=== PATIENT | male | born 1980 | race Hispanic/Latino ===

== ENCOUNTER 2017-09-05 08:41 | Inpatient (IN) | payer BC ==
[~2017-09-05] VITALS: Ht 195.6 cm; Wt 146.5 kg
[2017-09-05] MEDS ORDERED: ACETAMINOPHEN 1000 MG/100 ML IV STA (09:06)
[2017-09-05] MEDS ORDERED: SODIUM CHLORIDE 0.9% 1000ML 1,000 ML IV STA ×2 (09:08→13:55)
[2017-09-05] MEDS ORDERED: MORPHINE SULFATE 2 MG/ML SYR IV STA (09:17)
[2017-09-05] MEDS ORDERED: ONDANSETRON HCL INJ 2 MG/ML VIAL IV STA (09:17)
[2017-09-05 09:43] LABS: BASOPHILS % 0.2 % (0.0-1.0); HEMOGLOBIN 13.3 g/dL (14.0-18.0); MEAN CORPUSCULAR HEMOGLOBIN 29.2 pg (28-32); MEAN CORPUSCULAR VOLUME 83.3 fL (81-99); MONOCYTES # (AUTO) 1.8 (0.2-0.8); NEUTROPHILS # (AUTO) 17.3 (2.1-6.9); PLATELET COUNT 307 x10e3/uL (140-360); RED BLOOD COUNT 4.56 x10e6/uL (4.3-5.7); RED CELL DISTRIBUTION WIDTH 12.5 % (11.7-14.4)
[2017-09-05 10:02] LABS: ALBUMIN 3.6 g/dL (3.5-5.0); ALBUMIN/GLOBULIN RATIO 0.9 (0.8-2.0); CALCIUM 9.1 mg/dL (8.4-10.2); CREATININE, SERUM 1.35 mg/dL (0.72-1.25)
[2017-09-05 11:19] LABS: BILIRUBIN,URINE NEGATIVE (NEGATIVE); KETONES,URINE NEGATIVE (NEGATIVE); LEUKOCYTE ESTERASE ,URINE NEGATIVE (NEGATIVE); NITRITE,URINE NEGATIVE (NEGATIVE); URINE UROBILINOGEN 0.2 mg/dL (0.2 - 1)
[2017-09-05 11:20] LABS: CLARITY,URINE CLEAR (CLEAR); COLOR,URINE YELLOW (YELLOW); PROTEIN,URINE DIPSTICK 2+ (NEGATIVE)
[2017-09-05 11:33] LABS: EPITHELIAL CELLS,URINE RARE /LPF; WBC,URINE (MAN) 0-5 /HPF (0-5)
--- NOTE | 2017-09-05 11:35 | Diagnostic Imaging Report ---
PROCEDURE:TESTICULAR ULTRASOUND COMPARISON:None. INDICATIONS:LT TESTICULAR PAIN TECHNIQUE: Loya-scale and color doppler images of the testicles and scrotal contents were obtained. Duplex imaging with spectral waveform analysis was performed of the testicular arteries and veins. FINDINGS: RIGHT SCROTUM: Testicle: 3.5 x 2.7 x 2.9 cm. Epididymal head: 2.1 x 1.6 x 0.9 cm. Hydrocele: None. Varicocele: None. LEFT SCROTUM: Testicle: 3.8 x 2.5 x 2.9 cm. Epididymal head: 1.3 x 2.1 x 2.8 cm. Hydrocele: None. Varicocele: None. Increased vascularity is noted in the bilateral epididymides and testicles. Scrotal edema is present bilaterally. Normal arterial and venous waveforms. Low suspicion of torsion. CONCLUSION: Bilateral epididymoorchitis. No evidence of abscess formation. Dictated by: Neo Hinojosa M.D. on 09/05/2017 at 11:36 Electronically approved by: Neo Hinojosa M.D. on 09/05/2017 at 11:36
--- NOTE | 2017-09-05 11:36 | Diagnostic Imaging Report ---
PROCEDURE:TESTICULAR DOPPLER ULTRASOUND COMPARISON:None. INDICATIONS:LT TESTICULAR PAIN TECHNIQUE: Loya-scale and color doppler images of the testicles and scrotal contents were obtained. Duplex imaging with spectral waveform analysis was performed of the testicular arteries and veins. FINDINGS: See below. CONCLUSION: Please see the dictation of the testicular ultrasound for full clinical details. Dictated by: Neo Hinojosa M.D. on 09/05/2017 at 11:37 Electronically approved by: Neo Hinojosa M.D. on 09/05/2017 at 11:37
--- NOTE | 2017-09-05 13:03 | Diagnostic Imaging Report ---
PROCEDURE:CT PELVIS WITH CONTRAST COMPARISON:[facility], US, US TESTICULAR, 09/05/2017, 10:08. INDICATIONS:swelling in private Left testicle TECHNIQUE:CT of the pelvis was performed after the uneventful intravenous administration of 100 cc of nonionic contrast. A general protocol was utilized. DLP: 728.16 mGY-cm FINDINGS: BOWEL: Visualized portions of the small bowel and large bowel are normal in diameter with normal wall thickness. The appendix is not visible. There is no evidence of hernia. PELVIC NODES:No enlarged mesenteric lymph nodes. A right pelvic side wall lymph node measures 2.3 x 1.1 cm. Inguinal lymph nodes are increased in number and size, left more severe than the right. The largest left lymph node measures 1.6 x 3.0 cm. There is soft tissue inflammation in the left inguinal region. PELVIC ORGANS:The bladder is well-distended and is normal. The distal ureters are collapsed. Prostate gland and seminal vesicles appear normal. There are bilateral hydroceles. There are tiny epididymal calcifications on the right and the left. No enhancing fluid collection. No evidence of scrotal air. No free fluid or fluid collection in the pelvis. BONES: Mild degenerative changes of L5-S1 and milder changes of the right hip. There are no lytic or blastic lesions. CONCLUSION: 1. Bilateral inguinal lymphadenopathy, left more severe than the right with a solitary prominent right pelvic sidewall lymph node. These could be the result of an infectious/inflammatory process. Recommend follow-up CT in 10-12 weeks to assess interval change/resolution. 2. Bilateral hydroceles without evidence of abscess. 3. No intraperitoneal abscess or evidence of bowel obstruction. Dictated by: Grazyna Florian M.D. on 09/05/2017 at 13:03 Electronically approved by: Grazyna Florian M.D. on 09/05/2017 at 13:03
[2017-09-05] MEDS ORDERED: SODIUM CHLORIDE 0.9% 50ML 50 ML ONE (13:23)
[2017-09-05] MEDS ORDERED: IOPAMIDOL 370 MG/ML 200 ML INFUS..BTL INJ ONE (13:23)
[2017-09-05] MEDS ORDERED: SODIUM CHLORIDE 0.9% 1000ML 1,000 ML IV SCH (13:50)
[2017-09-05] MEDS ORDERED: CEFTRIAXONE SOD 250 MG VIAL IM ONE (14:00)
[2017-09-05] MEDS ORDERED: MORPHINE SULFATE 2 MG/ML SYR IV PRN ×3 (14:00→19:30)
[2017-09-05] MEDS ORDERED: VANCOMYCIN 1GM/NS 250 ML 250 ML IV SCH ×2 (14:00→15:00)
[2017-09-05] MEDS ORDERED: ONDANSETRON HCL INJ 2 MG/ML VIAL IV PRN (14:00)
[2017-09-05] MEDS ORDERED: DEXTROSE 50% SYRINGE 50 ML IV PRN (14:00)
--- OUTSIDE RECORDS SUMMARY | 2017-09-05 14:17 | XMS REPORT ---
Author Author [facility] Address Unknown Phone Unavailable Care Team Providers Care Commodity Loan Clerk Name Role Phone SURI GONZALEZ Unavailable Unavailable Problems This patient has no known problems. Allergies, Adverse Reactions, Alerts This patient has no known allergies or adverse reactions. Medications This patient has no known medications. Results Test Description Test Time Test Comments Text Results Atomic Results Result Comments CT PELVIS W [address] [address] Patient Name: JOSEPH NINA MR #: [id number] : 1980 Age/Sex: 36/M Req #: [id number] Adm Physician: Ordered by: SURI GONZALEZ MD Report #: [id number] Location: ER Room/Bed: Procedure: [id number] CT/CT PELVIS W Exam Date: 09/05/17 Exam Time: 1225 REPORT STATUS: Signed PROCEDURE: CT PELVIS WITH CONTRAST COMPARISON: [facility], US, US TESTICULAR, 09/05/2017, 10:08. INDICATIONS: swelling in private Left testicle TECHNIQUE: CT of the pelvis was performed after the uneventful intravenous administration of 100 cc of nonionic contrast. A general protocol was utilized. DLP: 728.16 mGY-cm FINDINGS: BOWEL: Visualized portions of the small bowel and large bowel are normal in diameter with normal wall thickness. The appendix is not visible. There is no evidence of hernia. PELVIC NODES : No enlarged mesenteric lymph nodes. A right pelvic side wall lymph node measures 2.3 x 1.1 cm. Inguinal lymph nodes are increased in number and size , left more severe than the right. The largest left lymph node measures 1.6 x 3.0 cm. There is soft tissue inflammation in the left inguinal region. PELVIC ORGANS: The bladder is well-distended and is normal. The distal ureters are collapsed. Prostate gland and seminal vesicles appear normal. There are bilateral hydroceles. There are tiny epididymal calcifications on the right and the left. No enhancing fluid collection. No evidence of scrotal air. No free fluid or fluid collection in the pelvis. BONES : Mild degenerative changes of L5-S1 and milder changes of the right hip. There are no lytic or blastic lesions. CONCLUSION: 1. Bilateral inguinal lymphadenopathy, left more severe than the right with a solitary prominent right pelvic sidewall lymph node. These could be the result of an infectious/inflammatory process. Recommend follow-up CT in 10-12 weeks to assess interval change/resolution. 2. Bilateral hydroceles without evidence of abscess. 3. No intraperitoneal abscess or evidence of bowel obstruction. Dictated by: Monique Florian M.D. on 09/05/2017 at 13:03 Electronically approved by: Monique Florian M.D. on 09/05/2017 at 13:03 Dictated By: MONIQUE FLORIAN MD 1303 Transcribed By: JORGE on 09/05/17 1303 COPY TO: SURI GONZALEZ MD [place] [address] Patient Name: JOSEPH NINA MR #: [id number] : 1980 Age/Sex: 36/M Req #: [id number] [facility] Physician: Ordered by: SURI GONZALEZ MD Report #: [id number] Location: ER Room/Bed: Procedure: [id number] US/US TESTICULAR Exam Date: Exam Time: REPORT STATUS: Signed PROCEDURE: TESTICULAR ULTRASOUND COMPARISON: None. INDICATIONS: LT TESTICULAR PAIN TECHNIQUE: Loya-scale and color doppler images of the testicles and scrotal contents were obtained. Duplex imaging with spectral waveform analysis was performed of the testicular arteries and veins. FINDINGS: RIGHT SCROTUM: Testicle: 3.5 x 2.7 x 2.9 cm. Epididymal head: 2.1 x 1.6 x 0.9 cm. Hydrocele: None. Varicocele : None. LEFT SCROTUM: Testicle: 3.8 x 2.5 x 2.9 cm. Epididymal head: 1.3 x 2.1 x 2.8 cm. Hydrocele: None. Varicocele: None. Increased vascularity is noted in the bilateral epididymides and testicles. Scrotal edema is present bilaterally. Normal arterial and venous waveforms. Low suspicion of torsion. CONCLUSION: Bilateral epididymoorchitis. No evidence of abscess formation. Dictated by: Katie Fuentes M.D. on 2017 at 11:36 Electronically approved by: Katie Fuentes M.D. on 2017 at 11:36 Dictated By: KATIE FUENTES MD 1136 Transcribed By: JORGE on 09/05/17 1136 COPY TO: SURI GONZALEZ MD TESTICULAR DOPPLER [place] [address] Patient Name: JOSEPH NINA MR #: [id number] : 1980 Age/Sex: 36/M Req #: [id number] Adm Physician: Ordered by: SURI GONZALEZ MD Report #: [id number] Location: Room/Bed: Procedure: [id number] US/US TESTICULAR DOPPLER LTD Exam Date: Exam Time: REPORT STATUS: Signed PROCEDURE: TESTICULAR DOPPLER ULTRASOUND COMPARISON: None. INDICATIONS: LT TESTICULAR PAIN TECHNIQUE: Loya-scale and color doppler images of the testicles and scrotal contents were obtained. Duplex imaging with spectral waveform analysis was performed of the testicular arteries and veins. FINDINGS: See below. CONCLUSION: Please see the dictation of the testicular ultrasound for full clinical details. Dictated by: Katie Fuentes M.D. on 09/05/2017 at 11:37 Electronically approved by: Katie Fuentes M.D. on at 11:37 Dictated By: KATIE FUENTES MD 1137 Transcribed By: JORGE on 09/05/17 8339 COPY TO: SURI GONZALEZ MD
[2017-09-05] MEDS: PIPERACILLIN/TAZO 4.5 GM 100 ML IV SCH ×2 (14:26→22:15)
[2017-09-05] MEDS ORDERED: IOPAMIDOL 300MG/ML 50ML INFUS..BTL IV ONE (15:18)
[2017-09-05] MEDS ORDERED: HYDROGEN PEROXIDE 120 ML BTL ONE (15:38)
[2017-09-05] MEDS: INSULIN REGULAR, HUMAN 100 UNIT/1 ML 3ML VIAL SQ SCH ×2 (16:30→22:45)
[2017-09-05] MEDS ORDERED: SODIUM CHLORIDE 0.9% 1000ML 1,000 ML ONE (17:17)
[2017-09-05 17:35] VITALS: BP 115/58
[2017-09-05] MEDS ORDERED: ONDANSETRON HCL INJ 2 MG/ML VIAL ONE (17:44)
[2017-09-05] MEDS ORDERED: LIDOCAINE HCL 2% LOCAL INJ 5 ML SDV VIAL INJ ONE (17:44)
[2017-09-05] MEDS ORDERED: METOCLOPRAMIDE HCL 10 MG/2ML VIAL ONE (17:44)
[2017-09-05] MEDS ORDERED: DESFLURANE 240 ML BTL INH ONE (17:44)
[2017-09-05] MEDS ORDERED: ACETAMINOPHEN 1000 MG/100 ML IV ONE (17:44)
[2017-09-05] MEDS ORDERED: PROPOFOL IV EMULSION 10 MG/ML 20 ML VIAL ONE (17:44)
[2017-09-05] MEDS: VANCOMYCIN 1GM/NS 250 ML 250 ML IV SCH (17:45)
[2017-09-05] MEDS ORDERED: MIDAZOLAM HCL 2 MG/2 ML VIAL ONE (17:58)
[2017-09-05] MEDS ORDERED: FENTANYL CITRATE/PF 100MCG/2 ML INJ ONE (17:58)
[2017-09-05 18:10] VITALS: BP 115/58
[2017-09-05] MEDS: FAMOTIDINE 20 MG TAB PO SCH (19:18)
[2017-09-05] MEDS: METFORMIN HCL 500 MG TAB PO SCH (19:18)
--- NOTE | 2017-09-05 19:19 | History and Physical ---
PRIMARY CARE PHYSICIAN: The patient has no PCP. CHIEF COMPLAINT: Swelling and erythema of the scrotum. HISTORY OF PRESENT ILLNESS: Mr. Salazar is a 36-year-old gentleman who was recently diagnosed with diabetes in the emergency room 2 weeks ago with elevated blood sugar, started on metformin. Now, he has 2 to 3 days of worsening erythema and swelling of the scrotum with fever and chills. REVIEW OF SYSTEMS: He has had subjective fever and chills. Denies weight loss. Denies sinus congestion or sore throat. Denies chest pain or palpitations. Denies shortness of breath, wheezing or cough. Denies abdominal pain, nausea and vomiting. He denies dysuria but has significant scrotal pain, tenderness and swelling. He denies rash or pruritus, but does have significant erythema of the scrotal skin. He denies bleeding or bruising. Denies headache, vertigo or loss of consciousness. He denies depression, agitation, homicidal or suicidal ideation. PAST MEDICAL HISTORY: Significant for diabetes diagnosed 2 weeks ago for which he is taking metformin 500 mg twice daily. The patient has no history of surgery and is not a smoker. ALLERGIES: NO KNOWN DRUG ALLERGIES. FAMILY HISTORY: Remarkable for diabetes. SOCIAL HISTORY: The patient is . Speaks good Citizen [place]. He is . Here with his . He does no smoke, drink or use illegal drugs, and is generally independently functioning. PHYSICAL EXAM: PSYCHIATRIC: He is alert and oriented times 3 with normal mood and affect. CONSTITUTIONAL: He is a little bit overweight with a BMI of 40.74, approaching morbid obesity. He is in no acute distress. VITAL SIGNS: Blood pressure initially 123/70, currently 115/58. Pulse initially 112 and now 91. Respiratory rate 16. O2 sat 99% on room air. Temperature initially 101.2, currently 98.5. HEENT: Head is atraumatic. His eyes are anicteric with clear conjunctivae. Ears and nares are without erythema or discharge. Oropharynx is clear. NECK: Is supple with no mass or thyromegaly. LYMPHATIC SYSTEM: He has no palpable cervical, axillary or inguinal adenopathy. Has some palpable inguinal nodes. CARDIOVASCULAR: His heart has a regular rate and rhythm without murmur or extra heart sounds. He has no peripheral edema. Has palpable dorsal pedal pulses. RESPIRATORY: Clear to auscultation and percussion with normal respiratory effort. GASTROINTESTINAL: His abdomen is soft without organomegaly, masses or tenderness. Normal bowel sounds present. GENITOURINARY: The patient is status post I and D of the scrotal area to rule out Quique. His scrotum is currently in a wound dressing with some serosanguineous drainage on the wound dressing. CUTANEOUS: His skin is warm and dry to touch. Again erythema of the scrotum which is now in a surgical dressing. MUSCULOSKELETAL: Joints are in normal alignment without erythema or swelling. Has no calf tenderness. NEUROLOGIC: Exam is nonfocal with intact cranial nerves and no motor or sensory deficits. DIAGNOSTIC STUDIES: Ultrasound of the scrotum showed bilateral epididymal orchitis but no abscess or air in the scrotum. Pelvic CT scan shows inguinal lymphadenopathy. No evidence of abscess or Quique gangrene. His UA is clear. Lactic acid 19.4. Chemistry shows normal electrolytes. CO2 26. Creatinine 1.35. BUN 11 for a GFR 59. Calcium 9.1. Glucose 311. Subsequent glucose 195 then 202. His transaminases, bilirubin and alkaline phos are all normal. CBC shows a white count of 20.4 with 85% neutrophils, 5% lymphocytes, 9% monocytes. Hemoglobin 13.3, hematocrit 38.0 platelet count 307,000. IMPRESSION AND PLAN 1. Cellulitis of the scrotum with sepsis combined with bilateral epididymal orchitis. The patient is status post incision and drainage by urology. Has been started on IV vancomycin and Zosyn. Wound care has been ordered. 2. Type 2 diabetes. Will continue his metformin and add sliding scale insulin. 3. For prophylaxis will initiate Lovenox for DVT prophylaxis 24 hours after surgery and Pepcid for GI prophylaxis. Job#: [id number]
[2017-09-05] MEDS ORDERED: MORPHINE SULFATE INJ 4 MG/ML INJ IV PRN (19:30)
[2017-09-05 20:00] VITALS: BP 113/56
[2017-09-05 22:45] VITALS: BP 113/56
[2017-09-05] MEDS: SODIUM CHLORIDE 0.9% 1000ML 1,000 ML IV SCH (22:45)
[2017-09-05] MEDS: OXYCODONE/ACETAMINOPHEN 5-325 1 EACH TABLET PO PRN (23:46)
[2017-09-06] VITALS (7 sets, daily range): BP systolic 103–133; BP diastolic 51–64
--- NOTE | 2017-09-06 00:06 | Consultation ---
DATE OF CONSULTATION: INITIAL VISIT, CONSULTATION SERVICE: Urology. ATTENDING PHYSICIAN: Dr. Dudley REASON FOR THE VISIT: Inflamed scrotum, possible abscess. HISTORY OF PRESENT ILLNESS: This is a 36-year-old patient that was admitted to the hospital for pain and swelling on the left side of his scrotum and erythema of the skin. The patient has past history of diabetes, hypertension, and obesity. Patient stated the pain progressed over several days. Today is the first time that he has fever and some chills. He does not have significant voiding symptoms. PAST MEDICAL HISTORY: Mentioned earlier. FAMILY HISTORY: Noncontributory to this disease. REVIEW OF SYSTEMS: Twelve systems reviewed. Except what is related to the current scrotal discomfort, pain, and swelling, all other 12 systems negative. PHYSICAL EXAMINATION: GENERAL: Patient is alert and oriented, seems to be in pain. VITAL SIGNS: Blood pressure 140/85, pulse 88, temperature 100, respirations 18. HEAD: Symmetric. EYES: Normal movement. NECK: No JVD. No masses. CHEST: Clear. HEART: Regular. ABDOMEN: Soft. : External genitalia, indurated and inflamed left side of the scrotum. The right testicle is palpable. Rectal, no masses. LOWER EXTREMITIES: Moves all. LABORATORY DATA: Reviewed. CT scan demonstrated inflammation in the scrotal area. No definitive were noticed. White count elevated. IMPRESSION: 1. Left scrotal abscess. 2. Left scrotal edema. 3. Small hydrocele on the left side. 4. Fever. 5. Diabetes mellitus. 6. Obesity. PLAN: Due to the picture, patient was started with intravenous antibiotic. He needs exploration of that inflammatory process and this will be done. Patient was advised about it. Thank you. Job#: [id number] cc:ALIZA DUDLEY MD
--- NOTE | 2017-09-06 00:09 | Operative Report ---
DATE OF PROCEDURE: September 05, 2017 SERVICE: Urology. PREOPERATIVE DIAGNOSES 1. Left scrotal abscess. 2. Left scrotal edema. 3. Small hydrocele. 4. Fever. POSTOPERATIVE DIAGNOSES 1. Left scrotal abscess. 2. Left scrotal edema. 3. Small hydrocele. 4. Fever. OPERATIONS PERFORMED 1. Retrograde urethrogram under fluoroscopic control. 2. Drainage of scrotal abscess on the left side. GLUING MACHINE OPERATOR AUTOMATIC: None. ANESTHESIA: General. CLINICAL INDICATION NOTE: An 36-year-old patient was brought for exploration of left scrotal induration and erythema. Patient has fever and white count elevated. Patient was advised about the plan and accepted. DESCRIPTION OF PROCEDURE AND FINDINGS: After proper level of anesthesia was achieved, a retrograde urethrogram was done to verify that there is no significant pathology related to the urethra. The urethrogram was unremarkable. Following this, 2 incisions were made over the left side of the scrotum, some fluid, which did not look purulent, was sent for culture and sensitivity. The wound was irrigated with diluted peroxide and 1/4-inch Irving drain was placed and brought through and through both incision and was tied to prevent displacement. Xeroform gauze was then used and packing was done. Patient did have a dressing applied with the use of mesh underwear. Patient tolerated the procedure well, was transferred in satisfactory condition to recovery room and will be admitted. IV antibiotic will continue. Job#: [id number] CQ cc:ALIZA LEBRON MD
[2017-09-06] MEDS: SODIUM CHLORIDE 0.9% 1000ML 1,000 ML IV SCH ×3 (02:45→21:54)
[2017-09-06] MEDS: OXYCODONE/ACETAMINOPHEN 5-325 1 EACH TABLET PO PRN ×2 (05:18→11:30)
[2017-09-06] MEDS: PIPERACILLIN/TAZO 4.5 GM 100 ML IV SCH ×3 (05:18→21:54)
[2017-09-06 07:10] LABS: BASOPHILS % 0.2 % (0.0-1.0); EOSINOPHILS # (AUTO) 0.1 (0.0-0.4); EOSINOPHILS % 0.4 % (0.0-6.0); HEMOGLOBIN 11.8 g/dL (14.0-18.0); LYMPHOCYTES # (AUTO) 1.6 (1.0-3.2); LYMPHOCYTES % 8.8 % (18.0-39.1); MEAN CORPUSCULAR HEMOGLOBIN 29.4 pg (28-32); MEAN CORPUSCULAR HGB CONC 34.7 g/dL (31-35); MEAN CORPUSCULAR VOLUME 84.8 fL (81-99); MONOCYTES # (AUTO) 2.4 (0.2-0.8); MONOCYTES % 12.8 % (4.4-11.3); NEUTROPHILS # (AUTO) 14.1 (2.1-6.9); NEUTROPHILS % 76.2 % (38.7-80.0); PLATELET COUNT 291 x10e3/uL (140-360); RED BLOOD COUNT 4.01 x10e6/uL (4.3-5.7); RED CELL DISTRIBUTION WIDTH 12.5 % (11.7-14.4)
[2017-09-06 07:44] LABS: ALANINE AMINOTRANSFERASE 15 IU/L (0-55); ALBUMIN 2.9 g/dL (3.5-5.0); ALBUMIN/GLOBULIN RATIO 0.7 (0.8-2.0); ALKALINE PHOSPHATASE 70 IU/L (40-150); ANION GAP 10.6 mmol/L (8-16); BLOOD UREA NITROGEN 7 mg/dL (7-26); BUN/CREATININE RATIO 6 (6-25); CALCIUM 8.3 mg/dL (8.4-10.2); CARBON DIOXIDE 28 mmol/L (22-29); CHLORIDE 103 mmol/L (98-107); CREATININE, SERUM 1.21 mg/dL (0.72-1.25); EST GLOMERULAR FILTRATION RATE > 60 ML/MIN (60-); GLUCOSE 168 mg/dL (74-118); POTASSIUM 3.6 mmol/L (3.5-5.1); SODIUM 138 mmol/L (136-145)
[2017-09-06 08:35] LABS: BAND NEUTROPHILS % (MANUAL) 1 %; HYPOCHROMASIA SLIGHT; LYMPHOCYTES % (MANUAL) 11 % (19-48); METAMYELOCYTES % (MANUAL) 1 % (0-0); MONOCYTES % (MANUAL) 9 % (3.4-9.0); MYELOCYTES % (MANUAL) 1 % (0-0); NEUTROPHILS % (MANUAL) 77 % (40-74); PLATELET ESTIMATE ADEQUATE; PLATELET MORPHOLOGY COMMENT NORMAL; RBC MORPHOLOGY COMMENT NORMAL
[2017-09-06 08:36] LABS: ANISOCYTOSIS SLIGHT; POIKILOCYTOSIS SLIGHT
[2017-09-06] MEDS: FAMOTIDINE 20 MG TAB PO SCH ×2 (08:39→17:07)
[2017-09-06] MEDS: INSULIN REGULAR, HUMAN 100 UNIT/1 ML 3ML VIAL SQ SCH ×4 (08:40→21:54)
[2017-09-06] MEDS: ENOXAPARIN SOD INJ 40 MG/0.4 ML SYR SC SCH (08:40)
[2017-09-06] MEDS: METFORMIN HCL 500 MG TAB PO SCH ×2 (08:40→17:07)
[2017-09-06] MEDS ORDERED: ACETAMINOPHEN 325 MG TAB PO PRN (13:30)
[2017-09-06] MEDS: VANCOMYCIN 1GM/NS 250 ML 250 ML IV SCH (17:07)
[2017-09-07] VITALS (8 sets, daily range): BP systolic 123–176; BP diastolic 57–79
[2017-09-07] MEDS: PIPERACILLIN/TAZO 4.5 GM 100 ML IV SCH ×3 (06:29→22:19)
[2017-09-07 06:56] LABS: BASOPHILS % 0.2 % (0.0-1.0); EOSINOPHILS # (AUTO) 0.3 (0.0-0.4); EOSINOPHILS % 1.8 % (0.0-6.0); HEMATOCRIT 31.7 % (38.2-49.6); HEMOGLOBIN 10.8 g/dL (14.0-18.0); LYMPHOCYTES % 14.3 % (18.0-39.1); MEAN CORPUSCULAR HEMOGLOBIN 29.3 pg (28-32); MEAN CORPUSCULAR HGB CONC 34.1 g/dL (31-35); MEAN CORPUSCULAR VOLUME 85.9 fL (81-99); MONOCYTES # (AUTO) 1.2 (0.2-0.8); MONOCYTES % 8.6 % (4.4-11.3); NEUTROPHILS # (AUTO) 10.2 (2.1-6.9); NEUTROPHILS % 74.2 % (38.7-80.0); PLATELET COUNT 277 x10e3/uL (140-360); RED BLOOD COUNT 3.69 x10e6/uL (4.3-5.7); RED CELL DISTRIBUTION WIDTH 12.4 % (11.7-14.4)
[2017-09-07] MEDS: INSULIN REGULAR, HUMAN 100 UNIT/1 ML 3ML VIAL SQ SCH ×4 (07:30→22:21)
[2017-09-07] MEDS: FAMOTIDINE 20 MG TAB PO SCH ×2 (07:30→16:30)
[2017-09-07 07:31] LABS: ANION GAP 11.1 mmol/L (8-16); BLOOD UREA NITROGEN 6 mg/dL (7-26); BUN/CREATININE RATIO 7 (6-25); CALCIUM 8.6 mg/dL (8.4-10.2); CARBON DIOXIDE 27 mmol/L (22-29); CHLORIDE 104 mmol/L (98-107); CREATININE, SERUM 0.92 mg/dL (0.72-1.25); EST GLOMERULAR FILTRATION RATE > 60 ML/MIN (60-); GLUCOSE 172 mg/dL (74-118); MAGNESIUM 1.4 MG/DL (1.3-2.1); PHOSPHORUS 2.8 MG/DL (2.3-4.7); POTASSIUM 4.1 mmol/L (3.5-5.1); SODIUM 138 mmol/L (136-145)
[2017-09-07] MEDS: METFORMIN HCL 500 MG TAB PO SCH ×2 (08:00→16:30)
[2017-09-07] MEDS: SODIUM CHLORIDE 0.9% 1000ML 1,000 ML IV SCH (10:06)
[2017-09-07] MEDS: ENOXAPARIN SOD INJ 40 MG/0.4 ML SYR SC SCH (10:06)
[2017-09-07] MEDS: SITAGLIPTIN 100 MG TAB PO SCH (16:25)
[2017-09-07] MEDS: LISINOPRIL 10 MG TAB PO SCH (16:29)
[2017-09-07] MEDS: VANCOMYCIN 1GM/NS 250 ML 250 ML IV SCH (17:42)
[2017-09-07] MEDS: OXYCODONE/ACETAMINOPHEN 5-325 1 EACH TABLET PO PRN (20:22)
[2017-09-08] VITALS: BP 106/58
[2017-09-08 04:00] VITALS: BP 132/62
[2017-09-08] MEDS: PIPERACILLIN/TAZO 4.5 GM 100 ML IV SCH ×3 (05:32→22:14)
[2017-09-08] MEDS: FAMOTIDINE 20 MG TAB PO SCH ×2 (07:30→17:00)
[2017-09-08 07:39] LABS: BASOPHILS % 0.3 % (0.0-1.0); EOSINOPHILS # (AUTO) 0.4 (0.0-0.4); EOSINOPHILS % 4.1 % (0.0-6.0); HEMATOCRIT 31.5 % (38.2-49.6); HEMOGLOBIN 10.7 g/dL (14.0-18.0); LYMPHOCYTES # (AUTO) 2.7 (1.0-3.2); LYMPHOCYTES % 27.6 % (18.0-39.1); MEAN CORPUSCULAR HEMOGLOBIN 29.1 pg (28-32); MEAN CORPUSCULAR VOLUME 85.6 fL (81-99); MONOCYTES # (AUTO) 0.8 (0.2-0.8); MONOCYTES % 8.2 % (4.4-11.3); NEUTROPHILS # (AUTO) 5.8 (2.1-6.9); NEUTROPHILS % 59.4 % (38.7-80.0); PLATELET COUNT 320 x10e3/uL (140-360); RED BLOOD COUNT 3.68 x10e6/uL (4.3-5.7); RED CELL DISTRIBUTION WIDTH 12.7 % (11.7-14.4)
[2017-09-08 08:00] VITALS: BP 123/68
[2017-09-08] MEDS: METFORMIN HCL 500 MG TAB PO SCH ×2 (08:00→17:00)
[2017-09-08 08:03] LABS: ANION GAP 8.8 mmol/L (8-16); BLOOD UREA NITROGEN 7 mg/dL (7-26); BUN/CREATININE RATIO 7 (6-25); CALCIUM 8.8 mg/dL (8.4-10.2); CARBON DIOXIDE 29 mmol/L (22-29); CHLORIDE 102 mmol/L (98-107); CREATININE, SERUM 0.95 mg/dL (0.72-1.25); EST GLOMERULAR FILTRATION RATE > 60 ML/MIN (60-); GLUCOSE 141 mg/dL (74-118); POTASSIUM 3.8 mmol/L (3.5-5.1); SODIUM 136 mmol/L (136-145)
[2017-09-08] MEDS: SITAGLIPTIN 100 MG TAB PO SCH (09:33)
[2017-09-08] MEDS: LISINOPRIL 10 MG TAB PO SCH (09:33)
[2017-09-08] MEDS: ENOXAPARIN SOD INJ 40 MG/0.4 ML SYR SC SCH (09:33)
[2017-09-08] MEDS: INSULIN REGULAR, HUMAN 100 UNIT/1 ML 3ML VIAL SQ SCH ×4 (09:34→21:00)
[2017-09-08] MEDS ORDERED: HYDRALAZINE HCL 20 MG/ML VIAL IV PRN (11:45)
[2017-09-08] MEDS ORDERED: ONDANSETRON HCL INJ 2 MG/ML VIAL IV PRN (11:45)
[2017-09-08 12:00] VITALS: BP 124/67
[2017-09-08 16:55] VITALS: BP 124/67
[2017-09-08] MEDS: VANCOMYCIN 1GM/NS 250 ML 250 ML IV SCH (17:00)
[2017-09-08 20:00] VITALS: BP 146/77
[2017-09-09] VITALS: BP 134/78
[2017-09-09 04:00] VITALS: BP 154/76
[2017-09-09] MEDS: PIPERACILLIN/TAZO 4.5 GM 100 ML IV SCH ×2 (05:10→13:32)
[2017-09-09] MEDS: INSULIN REGULAR, HUMAN 100 UNIT/1 ML 3ML VIAL SQ SCH ×3 (07:30→15:29)
[2017-09-09] MEDS: FAMOTIDINE 20 MG TAB PO SCH ×2 (07:30→16:47)
[2017-09-09 07:33] VITALS: BP 154/76
[2017-09-09 07:55] VITALS: BP_SYST 148
[2017-09-09] MEDS: METFORMIN HCL 500 MG TAB PO SCH ×2 (08:00→16:47)
[2017-09-09 08:08] LABS: BASOPHILS % 0.5 % (0.0-1.0); EOSINOPHILS # (AUTO) 0.3 (0.0-0.4); EOSINOPHILS % 3.9 % (0.0-6.0); HEMATOCRIT 32.1 % (38.2-49.6); LYMPHOCYTES # (AUTO) 2.5 (1.0-3.2); LYMPHOCYTES % 28.4 % (18.0-39.1); MEAN CORPUSCULAR HGB CONC 34.3 g/dL (31-35); MEAN CORPUSCULAR VOLUME 84.7 fL (81-99); MONOCYTES # (AUTO) 0.8 (0.2-0.8); MONOCYTES % 9.1 % (4.4-11.3); NEUTROPHILS % 57.2 % (38.7-80.0); PLATELET COUNT 347 x10e3/uL (140-360); RED BLOOD COUNT 3.79 x10e6/uL (4.3-5.7); RED CELL DISTRIBUTION WIDTH 12.6 % (11.7-14.4)
[2017-09-09 08:35] LABS: ANION GAP 8.7 mmol/L (8-16); BLOOD UREA NITROGEN 7 mg/dL (7-26); BUN/CREATININE RATIO 8 (6-25); CALCIUM 8.9 mg/dL (8.4-10.2); CARBON DIOXIDE 30 mmol/L (22-29); CHLORIDE 103 mmol/L (98-107); CREATININE, SERUM 0.83 mg/dL (0.72-1.25); EST GLOMERULAR FILTRATION RATE > 60 ML/MIN (60-); GLUCOSE 131 mg/dL (74-118); MAGNESIUM 1.4 MG/DL (1.3-2.1); POTASSIUM 3.7 mmol/L (3.5-5.1); SODIUM 138 mmol/L (136-145)
[2017-09-09] MEDS: LISINOPRIL 10 MG TAB PO SCH (09:51)
[2017-09-09] MEDS: SITAGLIPTIN 100 MG TAB PO SCH (09:51)
[2017-09-09] MEDS: ENOXAPARIN SOD INJ 40 MG/0.4 ML SYR SC SCH (09:51)
[2017-09-09] MEDS ORDERED: CIPROFLOXACIN500 MG PO (11:31)
[2017-09-09] MEDS ORDERED: BACTRIM DS TAB1 EACH PO (11:31)
[2017-09-09] MEDS ORDERED: TYLENOL WITH C1 EACH PO (11:31)
[2017-09-09 14:12] VITALS: BP 150/78
[2017-09-09] MEDS ORDERED: VANCOMYCIN HCL 1.5 GM in SODIUM CHLORIDE 0.9% 250ML 300 ML IV ONE (16:00)
[2017-09-09 16:51] VITALS: BP 133/72
--- NOTE | 2017-09-10 05:08 | Discharge Summary ---
ADMISSION DIAGNOSES 1. Cellulitis of the scrotum with sepsis. 2. Type 2 diabetes. DISCHARGE DIAGNOSES 1. Cellulitis of the scrotum with sepsis. 2. Type 2 diabetes. 3. Scrotal abscess. HISTORY: Patient has a history of diabetes, diagnosed about 2 weeks ago for which he is taking metformin b.i.d. He has no surgical history and is nonsmoking. HOSPITAL COURSE: A 36-year-old male presented with 2 to 3 days of worsening erythema and swelling of the scrotum with fever and chills. On admission, the patient was started on IV Zosyn and IV vancomycin and wound care was consulted. Ultrasound of the testicles showed bilateral epididymal orchitis, no evidence of abscess formation. Doppler of the testicles showed the same thing as the ultrasound. CT of the pelvis showed bilateral inguinal lymphadenopathy, more severe on the left than the right; bilateral hydroceles without evidence of abscess; no intraperitoneal abscess or evidence of bowel obstruction. Blood cultures were done which were negative. Urology was consulted. On September 05, 2017, he had drainage of abscess on the left testicle by urology. Adelso drain was put in place. Patient will follow up with urology in 1 to [address] Dudley in 1 to 2 weeks. With the Adelso drain, he will discharge home. The drainage is now serous drainage, minimal amount. Pain is tolerable. Patient has no other complaints. He was sent home with Tylenol 3, Cipro, and Bactrim, both b.i.d. He will be sent home with wound care and home health and follow up as discussed. Dictated by Rocio Parra NP ALIZA DUDLEY MD Job#: [id number]
[2017-09-10] MEDS ORDERED: VANCOMYCIN 1GM/NS 250 ML 250 ML IV SCH (09:00)
== END 2017-09-09 17:54 | disposition home health service (06) | DRG 872 ==
LOC: ER 08:41 → ERHOLD 14:14 → UNDOADMIN 14:14 → OR 14:20 → MED/SURG 17:10
PROVIDERS: ADMIT Internal Medicine; ATTEND Internal Medicine
PROC: BT151ZZ Fluoroscopy of Urethra using Low Osmolar Contrast (ICD-10-PCS; 2017-09-05)
PROC: 0V9500Z Drainage of Scrotum with Drainage Device, Open Approach (ICD-10-PCS; principal; 2017-09-05 13:00)
DX: A41.9 Sepsis, unspecified organism (principal); E11.8 Type 2 diabetes mellitus with unspecified complications; N49.2 Inflammatory disorders of scrotum; N43.3 Hydrocele, unspecified; E66.9 Obesity, unspecified; Z68.38 Body mass index [BMI] 38.0-38.9, adult; N45.3 Epididymo-orchitis
CPT/HCPCS: 36415; 72193; 74450; 76870; 80048; 80053; 80202; 81001; 82948; 83605; 83735; 84100; 84443; 85025; 87040; 87071; 87075; 87205; 93976; 99284; J1650; J2001; J2250; J2270; J2405; J2543; J2765; J3370; J7030; J7050; Q9967